=== PATIENT | male | born 1980 | race Caucasian/White ===

== ENCOUNTER 2017-11-17 16:40 | Emergency (ER) | payer OTHER ==
[2017-11-17] MEDS: morphine 4 MG/ML VIAL IV (17:58)
[2017-11-17] MEDS: KETOROLAC 30 MG INJ IV (17:58)
[2017-11-17] MEDS: ONDANSETRON 4 MG INJ IV ×2 (17:58→19:48)
[2017-11-17] MEDS: METHOCARBAMOL 500 MG TAB PO (18:12)
[2017-11-17] MEDS: HYDROmorphONE 0.5 MG/0.5 ML SYG IV (19:48)
== END 2017-11-17 20:36 | disposition home or self-care (01) ==
LOC: FTE 16:40
DX: M54.5 Low back pain (principal)
CPT/HCPCS: 72100; 96374; 96375; 96376; 99284-25